=== PATIENT | male | born 1965 | race African-American/Black ===

== ENCOUNTER 2022-04-04 22:49 | Inpatient (IN) | payer OTHER ==
[~2022-04-04] VITALS: Ht 177.8 cm; Wt 91.6 kg
[2022-04-04 22:55] VITALS: BP_SYST 134
[2022-04-05 00:40] LABS: BASOPHILS % (AUTO) 0.9 % (0.0-2.0); EOSINOPHILS # (AUTO) 0.2 K/uL (0.0-0.4); EOSINOPHILS % (AUTO) 3.5 % (0.0-4.0); HEMATOCRIT 33.4 % (36-54); HEMOGLOBIN 11.3 g/dL (14.0-18.0); LYMPHOCYTES % (AUTO) 24.1 % (20.5-51.5); MEAN CORPUSCULAR HEMOGLOBIN 28 pg (27-31); MEAN CORPUSCULAR HGB CONC 34 % (32-36); MEAN CORPUSCULAR VOLUME 82 fL (79.0-98.0); MONOCYTES # (AUTO) 0.4 K/uL (0.0-1.0); MONOCYTES % (AUTO) 8.6 % (1.7-9.3); NEUTROPHILS # (AUTO) 2.7 K/uL (1.8-7.7); NEUTROPHILS % (AUTO) 62.9 % (40.0-70.0); PLATELET COUNT (AUTO) 295 K/uL (130-430); RED BLOOD CELL COUNT(AUTO) 4.06 MIL/uL (4.2-6.2); RED CELL DISTRIBUTION WIDTH 14.9 % (9.0-15.0); WHITE BLOOD COUNT (AUTO) 4.3 K/uL (4.8-10.8)
[2022-04-05 02:08] LABS: ANION GAP 9 (5-15); CALCIUM 8.7 mg/dL (8.4-11.0); CHLORIDE 101 mmol/L (98-107); CREATININE 1.22 mg/dL (0.55-1.30); GFR AFRICAN AMERICAN 79 mL/min (>90); GLUCOSE 129 mg/dL (70-99); POTASSIUM 3.3 mmol/L (3.5-5.1); SODIUM SERUM 138 mmol/L (136-145); UREA NITROGEN, BLOOD 12 mg/dL (8-21)
[2022-04-05 02:09] LABS: ALANINE AMINOTRANSFERASE 23 U/L (12-78); ALBUMIN 3.7 g/dL (3.4-4.8); ASPARTATE AMINOTRANSFERASE 20 U/L (10-37); TOTAL BILIRUBIN 0.1 mg/dL (0.0-1.0)
[2022-04-05] MEDS ORDERED: POTASSIUM CHLORIDE 20 MEQ TAB.PRT.SR PO ONE (04:30)
[2022-04-05] MEDS ORDERED: VALS160T2 PO (04:41)
[2022-04-05] MEDS ORDERED: AMLO5TAB4 PO (04:41)
[2022-04-05] MEDS ORDERED: MAGNESIUM SULFATE 50 ML IV PRN (09:00)
[2022-04-05] MEDS ORDERED: ACETAMINOPHEN 325 MG TABLET PO PRN (09:00)
[2022-04-05] MEDS ORDERED: MUPIROCIN 2% TOPICAL OINTMENT 22 GM NS PRN (09:00)
[2022-04-05] MEDS ORDERED: LORazepam 2 MG/ML VIAL IVP PRN (09:00)
[2022-04-05] MEDS ORDERED: POTASSIUM CHLORIDE 20 MEQ TAB.PRT.SR PO PRN (09:00)
[2022-04-05] MEDS ORDERED: DOCUSATE SODIUM 100 MG CAPSULE PO PRN (09:00)
[2022-04-05] MEDS ORDERED: MORPHINE 2 MG/ML INJ. SYRINGE IVP PRN ×2 (09:00)
[2022-04-05] MEDS ORDERED: ONDANSETRON HCL 4 MG/2 ML VIAL IVP PRN (09:00)
[2022-04-05] MEDS ORDERED: ZOLPIDEM TARTRATE 5 MG TABLET PO PRN (09:00)
[2022-04-05] MEDS ORDERED: NALOXONE HCL 0.4 MG/ML AMP (NARCAN) IVP PRN ×2 (09:00)
[2022-04-05] MEDS ORDERED: LORazepam 1 MG TABLET PO PRN (09:15)
[2022-04-05] MEDS: LOSARTAN POTASSIUM 50 MG TABLET (COZAAR) PO ONE ×2 (09:15→10:25)
[2022-04-05 10:25] LABS: TOTAL IRON BIND. CAPACITY 336 ug/dL (250-450)
[2022-04-05] MEDS: ASPIRIN 81 MG TABLET(ECOTRIN) PO SCH (10:25)
[2022-04-05] MEDS: NACL 0.9% 1,000 ML IV SCH ×2 (10:25→14:59)
[2022-04-05] MEDS ORDERED: GADOTERATE MEGLUMINE 7.5 MMOL/15 ML VIAL IV ONE (12:58)
[2022-04-05 15:14] VITALS: BP_SYST 127
[2022-04-05 20:00] VITALS: BP_SYST 146
[2022-04-05] MEDS ORDERED: amLODIPine BESYLATE 10 MG TABLET PO ONE (22:15)
[2022-04-05] MEDS ORDERED: PATIENT'S OWN TABLET PO ONE (22:15)
[2022-04-05] MEDS ORDERED: HCTZ PO ONE (22:30)
[2022-04-05] MEDS ORDERED: VALSARTAN PO ONE (22:30)
[2022-04-06] VITALS: BP_SYST 138
[2022-04-06 07:48] LABS: CALCIUM 9.2 mg/dL (8.4-11.0); CREATININE 1.11 mg/dL (0.55-1.30); POTASSIUM 3.1 mmol/L (3.5-5.1)
[2022-04-06 07:58] LABS: ALBUMIN 3.6 g/dL (3.4-4.8); THYROID STIMULATING HORMONE 1.26 uIu/mL (0.36-3.74); TOTAL BILIRUBIN 0.2 mg/dL (0.0-1.0)
[2022-04-06 08:12] VITALS: BP_SYST 141
[2022-04-06] MEDS: ASPIRIN 81 MG TABLET(ECOTRIN) PO SCH (08:27)
[2022-04-06] MEDS ORDERED: LOSARTAN POTASSIUM 50 MG TABLET (COZAAR) PO SCH (09:00)
[2022-04-06] MEDS ORDERED: IBUP-1969 PO (10:04)
[2022-04-06] MEDS ORDERED: POTA-178 PO (10:04)
[2022-04-06] MEDS ORDERED: CEPH250C PO (10:04)
[2022-04-06] MEDS ORDERED: PSEU60TA98 PO (10:04)
[2022-04-06 12:05] LABS: BASOPHILS % (AUTO) 1.1 % (0.0-2.0); EOSINOPHILS # (AUTO) 0.2 K/uL (0.0-0.4); EOSINOPHILS % (AUTO) 4.2 % (0.0-4.0); HEMATOCRIT 36.7 % (36-54); LYMPHOCYTES # (AUTO) 1.1 K/uL (1.0-5.5); LYMPHOCYTES % (AUTO) 26.7 % (20.5-51.5); MEAN CORPUSCULAR HEMOGLOBIN 27 pg (27-31); MEAN CORPUSCULAR HGB CONC 33 % (32-36); MEAN CORPUSCULAR VOLUME 83 fL (79.0-98.0); MONOCYTES # (AUTO) 0.4 K/uL (0.0-1.0); MONOCYTES % (AUTO) 9.5 % (1.7-9.3); NEUTROPHILS # (AUTO) 2.4 K/uL (1.8-7.7); NEUTROPHILS % (AUTO) 58.5 % (40.0-70.0); PLATELET COUNT (AUTO) 289 K/uL (130-430); RED BLOOD CELL COUNT(AUTO) 4.41 MIL/uL (4.2-6.2)
[2022-04-06 13:00] VITALS: BP_SYST 144
[2022-04-06 13:02] VITALS: BP_SYST 144
[2022-04-06 13:56] VITALS: BP_SYST 144
[2022-04-06] MEDS ORDERED: HCTZ PO SCH (21:00)
[2022-04-06] MEDS ORDERED: VALSARTAN PO SCH (21:00)
== END 2022-04-06 22:20 | disposition home or self-care (01) | DRG 74 ==
LOC: SED 22:49 → STU 04-05 04:35
PROVIDERS: ADMIT General Practice; ATTEND General Practice
PROC: 4A10X4Z Monitoring of Central Nervous Electrical Activity, External Approach (ICD-10-PCS; principal; 2022-04-05)
DX: G90.8 Other disorders of autonomic nervous system (principal); I10 Essential (primary) hypertension; E87.6 Hypokalemia; D64.9 Anemia, unspecified; G43.909 Migraine, unspecified, not intractable, without status migrainosus; Z20.822 Contact with and (suspected) exposure to COVID-19
CPT/HCPCS: 36415; 70450-TC; 70553; 71045; 76376; 80048; 80053; 80061; 82607; 82728; 82962; 83036; 83540; 83550; 83735; 83880; 84443; 84484; 85025; 85610-TC; 87420; 93005; 93306; 93880; 95816; 99285; A9575; G0378